=== PATIENT | female | born 1950 | race Caucasian/White ===

== ENCOUNTER → 2024-07-13 11:21 | Observation (INO) ==
[2024-07-11 18:48] LABS: Basophils #(Absolute) Auto 0.1 (0.0-0.1); Basophils%(Percent) Auto 0.8 (0.1-0.85); Eosinophils#(Absolute)Auto 0.1 (0.0-0.2); Eosinophils%(Percent) Auto 0.4 % (0.4-2.8); Granulocytes % - Auto 86.8 % (47.8-71.3); Granulocytes#(Absolute)- Auto 12.2 (2.3-6.0); Mean Corpuscular Volume 90.8 fl (81.0-93.7); Monocytes #(Absolute)- Auto 0.8 (1.1-3.1); Monocytes %(Percent)- Auto 5.5 % (3.6-9.8); Platelet Count 248 K/uL (152-353); White Blood Count 14.1 K/uL (4.3-9.3)
[2024-07-12] MEDS: DEXTROSE 50 % 25 GM/50 ML SYRINGE INJ ONE (07:39)
[2024-07-12 10:17] LABS: Potassium 3.9 mmol/L (3.6-5.2)
[2024-07-12 10:34] LABS: Basophils #(Absolute) Auto 0.1 (0.0-0.1); Basophils%(Percent) Auto 0.8 (0.1-0.85); Eosinophils#(Absolute)Auto 0.2 (0.0-0.2); Eosinophils%(Percent) Auto 1.6 % (0.4-2.8); Granulocytes % - Auto 81.6 % (47.8-71.3); Granulocytes#(Absolute)- Auto 8.3 (2.3-6.0); Hematocrit 37.6 % (35.9-46.7); Mean Corpuscular Volume 91.4 fl (81.0-93.7); Monocytes #(Absolute)- Auto 0.7 (1.1-3.1); Monocytes %(Percent)- Auto 7.1 % (3.6-9.8); Platelet Count 251 K/uL (152-353); White Blood Count 10.2 K/uL (4.3-9.3)
[2024-07-12] MEDS: NON-FORMULARY MEDICATION 1 EACH (Levocetirizine 5 mg tablet) PO SCH (10:36)
[2024-07-12] MEDS: METFORMIN HCL 500 MG TABLET PO SCH (11:23)
[2024-07-12] MEDS: predniSONE 5 MG TABLET PO ONE (11:23)
[2024-07-12] MEDS: CLOPIDOGREL BISULFATE 75 MG TABLET PO SCH (11:23)
[2024-07-12] MEDS: AMLODIPINE BESYLATE 5 MG TABLET PO SCH (11:23)
[2024-07-12] MEDS: SULFAMETHOXAZOLE/TRIMETHOPRIM 1 EACH TABLET PO SCH (11:23)
[2024-07-12] MEDS: FUROSEMIDE 20 MG TABLET PO SCH (11:23)
[2024-07-12] MEDS: CYANOCOBALAMIN 1000 MCG PO SCH (11:24)
[2024-07-12] MEDS: COLCHICINE 0.6 MG TABLET PO SCH (11:24)
--- NOTE | 2024-07-12 11:45 | History & Physical Report ---
H&P: HPI History of Present Illness Chief complaint: cellulitis left lower leg, failed op tx, gout, con Narrative: Ms. Newman was admitted on 07/11/24 directly from PCP due to cellulits and BLE edema. She states that it has been ongoing since last week when she was discharged here on doxycycline. She complains of gout flare too with R foot pain near great toe, and redness to anterior LLE. Negative for edema. WBC elevated on admit at 14, 10 this morning. Vitals normal limits. BUN and creatinine elevated this week at 37, and 2.1 yesterday and 1.8 this morning with IVF. Uric acid 8.3. Review of Systems 2 Status of ROS 10 or more systems reviewed and unremark able except as noted in history and below Integumentary/Breast Reports: redness (LLE) PFSH PFS Medical History (Updated 07/12/24 @ 11:56 by Haresh Dahl NP) Gout Chronic acquired lymphedema Metabolic syndrome Congestive heart failure with left ventricular diastolic dysfunction, NYHA class 3 CAD (coronary artery disease) Diabetes HTN (hypertension) COPD (chronic obstructive pulmonary disease) Social History Smoking status: never smoker Problems where you live: no known problems Highest level of school completed/degree received: decline to answer Feel stressed/tense/nervous/anxious/difficulty sleeping: not at all Meds Home Medications and Allergies Home Medications Medication Instructions Recorded Confirmed Type amlodipine 5 mg tablet 5 mg PO DAILY 07/06/2407/12 History cholecalciferol (vitamin D3) 125 125 mcg PO DAILY 06/1007/12/24 History mcg (5,000 unit) tablet clopidogrel 75 mg tablet 75 mg PO DAILY 07/06/2405/03 History cyanocobalamin (vitamin B-12) 1,000 mcg sublingual JUNIOR LY 07/06/24 07/12/24 History 1,000 mcg sublingual lozenge furosemide 20 mg tablet 20 mg PO DAILY 07/06/2405/03 History gabapentin 600 mg tablet 600 mg PO TID 07/06/2407/12 History glimepiride 4 mg tablet 4 mg PO BID 07/06/24 5 History hydrocodone 10 mg-acetaminophen 1 tab PO Q12H PRN pain 07/06/24 07/12/24 History 325 mg tablet insulin glargine 100 unit/mL (3 40 unit subcut QPM 07/12/24 History mL) subcutaneous pen (Lantus Solostar U-100 Insulin) levocetirizine 5 mg tablet 5 mg PO DAILY 07/06/24 06/05/03 History levothyroxine 75 mcg tablet 75 mcg PO DAILY 07/06/24 0 07/12/24 History metformin 500 mg tablet 500 mg PO BID 07/06/2407/12 History mupirocin 2 % topical ointment 1 applic topical TID 07/12/24 History omeprazole 20 mg capsule,delayed 20 mg PO DAILY 07/12/24 History release semaglutide 0.25 mg or 0.5 mg (2 0.5 mg subcut .every week 07/06/24 07/12/24 History mg/3 mL) subcutaneous pen injector (Ozempic) simvastatin 40 mg tablet 40 mg PO .QHS 07/06/2407/12 History doxycycline monohydrate 100 mg 100 mg PO BID celluliti s #14 tabs 07/07/24 Rx tablet Allergies Allergy/AdvReac Type Severity Reaction Status Date / Time No Known Drug Allergies Allergy Verified 07/05/24 18:36 Exam 2 Constitutional: abnormal general appearance (disheveled) and (chronically ill), no apparent distress, abnormal body habitus (obese), limitations noted (physical limitations) and alert Vital Signs - 24 hr 07/11/24 17:05 07/11/24 17:05 07/11/24 20:00 Temperature 98.2 F 98.7 F Pulse Rate [Left] 94 H 92 H 64 Respiratory Rate 18 18 19 Blood Pressure Blood Pressure [Le ft Arm] 157/82 145/71 Pulse Oximetry 96 96 94 L Oxygen Delivery Me thod Room Air Room Air Room Air 07/11/24 23:36 07/12/24 03:46 07/12/24 08:00 Temperature 98.1 F 97.6 F 97.5 F L Pulse Rate [Left] 86 75 72 Respiratory Rate 17 18 17 Blood Pressure Blood Pressure [Le ft Arm] 149/71 154/70 162/76 Pulse Oximetry 99 96 98 Oxygen Delivery Me thod Room Air Room Air Room Air 07/12/24 11:23 07/12/24 11:23 Temperature Pulse Rate [Left] Respiratory Rate Blood Pressure 162/76 162/76 Blood Pressure [Le ft Arm] Pulse Oximetry Oxygen Delivery Oh thod HENMT: normocephalic, head/scalp atraumatic, hearing grossly abnormal, external ears normal, nasal mucous membranes normal, external nose normal, oral mucous membranes abnormal, oropharynx normal and dentition abnormal Eyes: PERRL, EOMs intact bilaterally, conjunctivae normal, no scleral icterus, papilledema noted and periorbital findings normal Neck/C-Spine: abnormal to visual inspection, trachea midline, cervical spine nontender, abnormal cervical ROM noted, supple, no meningeal signs, thyroid normal and no carotid bruits Lymph: no lymphadenopathy noted and no lymphedema noted Chest: inspection of chest normal Respiratory: breath sounds equal bilaterally, normal respiratory effort, clear to auscultation bilaterally, no wheezes, no rales, no retractions, no use of accessory muscles and chest percussion normal Cardiovascular: normal heart rate noted, regular rhythm noted, no gallop, no rub, no murmur, no JVD, no clicks, peripheral pulses as noted: and no bruits noted Gastrointestinal: abdomen abnormal to inspection, abdomen soft to palpation, nontender to palpation, nontender to percussion, nondistended, abnormal bowel sounds noted, hepatosplenomegaly noted, no masses, no pulsatile mass, no ascites and no hernia Genitourinary: no CVA tenderness and bladder normal to palpation Back/Pelvis: spine abnormal to inspection, no thoracic spine tenderness, no lumbar spine tenderness, thoracic spine ROM abnormal, lumbar spine ROM abnormal and straight leg raise negative bilaterally Extremities: abnormal to inspection, normal to palpation, no tenderness, full ROM, no joint enlargement and no deformity BLE nonpitting and tight with anterior BLE redness to lower legs. Strong 2 plus bilateral pedal and radial pulses, warm to touch Neurology: cranial nerve findings as noted:, no movement abnormality noted, no focal motor deficit noted, sensory deficit noted, deep tendon reflexes 2+ bilaterally, gait abnormality noted, speech normal, coordination normal, no fasciculations noted and GCS normal Psychiatry: Mental Status Exam documented within this Exam's Psych section mental status grossly normal, oriented x3, thought process normal, cooperative, affect normal, psychomotor activity normal and memory normal Feel stressed/tense/nervous/anxious/difficulty sleeping: not at all Skin: skin color abnormal, rash noted, ecchymosis noted, no wounds, no lacerations, skin turgor abnormal, jaundice noted, no petechiae, no mottling, nails abnormality noted and alopecia noted legs improving as noted in hospital course Image: Body (4 view): 1. Erythema Assessment and Plan Assessment and Plan (1) Cellulitis of left leg: Assessment and Plan: Bactrim DS po BID Code(s): L03.116 - Cellulitis of left lower limb (2) Gout: Assessment and Plan: Prednisone 10mg po now and daily Colchicine 1.2mg po now Code(s): M10.9 - Gout, unspecified (3) Acute kidney injury superimposed on stage 4 chronic kidney disease: Assessment and Plan: NS@100ml/hr Code(s): N17.9 - Acute kidney failure, unspecified; N18.4 - Chronic kidney disease, stage 4 (severe) (4) Diabetes: Assessment and Plan: Accucheck AC HS w/ SSI Lantus 40units @ HS Qualifiers: Diabetes mellitus type: type 2 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 Diabetes mellitus complication status: with other specified complication Qualified Code(s): E11.69 - Type 2 diabetes mellitus with other specified complication; Z79.4 - penitentiary (current) use of insulin Code(s): E11.9 - Type 2 diabetes mellitus without complications Plan Admit VS q4hrs CBC BMP in AM Results Labs Labs: CBC 07/11/24 07/12/24 Range/Units 18:24 10:00 WBC 14.1 H 10.2 H (4.3-9.3) K/uL RBC 4.1 4.1 (4.00-5.50) M/uL Hgb 11.9 L 12.3 L (12.5-15.8) gm/dL Hct 37.0 37.6 (35.9-46.7) % Plt Count 248 251 (152-353) K/uL Gran % 86.8 H 81.6 H (47.8-71.3) % Lymph % (Auto) 6.5 L 8.9 L (20.0-43.0) % [place] % (Auto) 5.5 7.1 (3.6-9.8) % Eos % (Auto) 0.4 1.6 (0.4-2.8) % Baso % (Auto) 0.8 0.8 (0.1-0.85) Lymph # (Auto) 0.9 L 0.9 L (1.1-3.1) [place] # (Auto) 0.8 L 0.7 L (1.1-3.1) Eos # (Auto) 0.1 0.2 (0.0-0.2) Baso # (Auto) 0.1 0.1 (0.0-0.1) Absolute Gran (auto) 12.2 H 8.3 H (2.3-6.0) CMP 07/11/24 07/12/24 18:24 10:00 Sodium 137 138 Potassium 4.0 3.9 Chloride 104.0 105.0 Carbon Dioxide 22 24 BUN 34 H 37 H Creatinine 2.1 H 1.8 H Glucose 87 142 H Calcium 8.4 L 9.0 Liver Function 07/11/24 Range/Units 18:24 Total Bilirubin 0.50 (0.0-1.0) mg/dL AST 23 (15-37) U/L ALT 27 L (30-65) U/L Alkaline Phosphatase 54 (50-136) U/L Albumin 2.7 L (3.4-5.0) g/dL
[2024-07-12] MEDS: 0.9 % SODIUM CHLORIDE 1000 ML 1,000 ML IV SCH (12:26)
[2024-07-12] MEDS: GABAPENTIN 300 MG CAPSULE PO SCH (15:48)
[2024-07-12] MEDS: LEVOTHYROXINE SODIUM 75 MCG TABLET PO SCH (15:48)
[2024-07-12] MEDS: GLIMEPIRIDE 2 MG TABLET PO SCH (15:48)
[2024-07-12] MEDS: SIMVASTATIN 10 MG TABLET PO SCH (20:37)
[2024-07-12] MEDS: CETIRIZINE HCL 10 MG TABLET PO SCH (20:37)
[2024-07-12] MEDS: INSULIN GLARGINE-YFGN 100 UNIT/ML INSULN.PEN SUBQ SCH (20:38)
[2024-07-13 05:34] LABS: Basophils #(Absolute) Auto 0.1 (0.0-0.1); Basophils%(Percent) Auto 0.7 (0.1-0.85); Eosinophils#(Absolute)Auto 0.2 (0.0-0.2); Eosinophils%(Percent) Auto 1.9 % (0.4-2.8); Granulocytes % - Auto 79.1 % (47.8-71.3); Granulocytes#(Absolute)- Auto 9.7 (2.3-6.0); Hematocrit 37.1 % (35.9-46.7); Mean Corpuscular Volume 91.3 fl (81.0-93.7); Monocytes #(Absolute)- Auto 0.8 (1.1-3.1); Monocytes %(Percent)- Auto 6.4 % (3.6-9.8); Platelet Count 276 K/uL (152-353); White Blood Count 12.3 K/uL (4.3-9.3)
[2024-07-13 05:43] LABS: Potassium 4.9 mmol/L (3.6-5.2)
[2024-07-13 07:44] VITALS: BP 154/74; PULSE 65; RESP 19; TEMP 97.8
[2024-07-13] MEDS: CHOLECALCIFEROL 1,000 UNITS TABLET (25 MCG) PO SCH (08:06)
[2024-07-13] MEDS: PANTOPRAZOLE SODIUM 40 MG TABLET.DR PO SCH (08:06)
[2024-07-13] MEDS: predniSONE 5 MG TABLET PO SCH (08:07)
[2024-07-13] MEDS: CYANOCOBALAMIN (VITAMIN B-12) 1,000 MCG TABLET PO SCH (09:34)
[~2024-07-13 11:21] MED LIST: HYDROCODONE/APAP 10/325 MG 1 EACH TABLET PO PRN; INSULIN GLARGINE SUBQ SCH; MUPIROCIN 22 GM OINT...G. TOPICAL SCH; OMEPRAZOLE 20 MG PO SCH
--- NOTE | 2024-07-13 18:15 | Discharge Summary ---
DS: Providers Provider Date of admission: 07/11/24 16:25 Primary care physician: Otilia Barlow DO Admitting clinician: Haresh Dahl Attending physician on admission: Pedro Landry Attending physician on discharge: Pedro Landry Discharging clinician: Nathan Christie Anticipated date of discharge: 07/13/24 DS: Diagnosis Discharge Diagnosis (1) Cellulitis of left leg: (2) Gout: (3) Acute kidney injury superimposed on stage 4 chronic kidney disease: (4) Diabetes: Qualifiers: Diabetes mellitus type: type 2 Diabetes mellitus long-term insulin use: with exterminator termite use Diabetes mellitus complication status: with other specified complication Qualified Code(s): E11.69 - Type 2 diabetes mellitus with other specified complication; Z79.4 - moth exterminator (current) use of insulin Plan Rx. Bactrim DS BID #14 Rx. Tylenol #3 w6h prn #20 Rx. Bactroban ointment BID 30gm Rx. Colchicine 0.6mg q6h or q1h prn up to 3 for acute pain #30 Resume regular home meds FU PCP 07/19/24 as directed DS: Summary Hospital Course Hospital Course: 73 yo female direct admitted by Dr. Barlow as a bounceback following discharge last week for LLE cellulitis. She also presented with acute flare of gout to her Rt great toe. Area of concerned was to the LLE distal calf, an area appropx 10cm in diameter, red, angry, warm, tender to touch. Rt great toe also with erythema, calor and TTP. She was started on colchicine oral therapy and Bactrim DS BID. She is insulin-dependent DM2 with HTN, chronic pain, HLD, hypothyroidism on Eliquis BID. Patient this morning with marked improvement in the area of redness to the leg and the right great toe, verbalizes desire to go home. Discussion of discharge and home medications allowed for patient input in decision to discharge. Status at Discharge Cognitive/behavioral status at discharge: stable, baseline Functional status at discharge: independent ambulation Overall status at discharge: patient is back to baseline Time Spent with Patient Time attestation: Total time spent providing and/or coordinating discharge services: Time spent: less than 30 minutes Exam Constitutional: normal general appearance and no apparent distress Vital Signs - 24 hr 07/12/24 19:44 07/12/24 23:33 07/13/24 03:37 Temperature 98.7 F 98.6 F 97.7 F Pulse Rate [Left] 89 74 63 Respiratory Rate 21 19 18 Blood Pressure [Le ft Arm] 156/73 152/72 122/41 Pulse Oximetry 96 95 96 Oxygen Delivery Me thod Room Air Room Air Room Air 07/13/24 07:42 Temperature 97.8 F Pulse Rate [Left] 65 Respiratory Rate 19 Blood Pressure [Le ft Arm] 154/74 Pulse Oximetry 99 Oxygen Delivery Me thod Room Air HENMT: normocephalic, head/scalp atraumatic and oral mucous membranes normal Eyes: PERRL and EOMs intact bilaterally Neck/C-Spine: visual inspection normal, cervical full ROM noted and supple Chest: inspection of chest normal and palpation of chest normal Respiratory: breath sounds equal bilaterally, normal respiratory effort, no wheezes, no rales and no retractions Cardiovascular: normal heart rate noted, regular rhythm noted, no gallop, no rub, no murmur, no JVD and peripheral pulses 2+ throughout Gastrointestinal: abdomen normal to inspection and abdomen soft to palpation obese Genitourinary: no CVA tenderness Back/Pelvis: spine normal to inspection and no thoracic spine tenderness Extremities: normal to inspection greatly improved area of local cellulitis to LLE lateral aspect just above ankle. Right great toe also reduced erythema and pain on colchicine. 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, gait normal and GCS normal Skin: skin color normal, no wounds and no mottling DS: Data Data Completed and Pending Completed studies during hospitalization: see note Labs on day of discharge: Labs from last 24 hours 07/13/24 05:20 WBC 12.3 H RBC 4.1 Hgb 11.9 L Hct 37.1 MCV 91.3 MCH 29.4 MCHC 32.2 L RDW 14.2 Plt Count 276 MPV 7.8 Gran % 79.1 H Lymph % (Auto) 11.9 L [place] % (Auto) 6.4 Eos % (Auto) 1.9 Baso % (Auto) 0.7 Lymph # (Auto) 1.5 [place] # (Auto) 0.8 L Eos # (Auto) 0.2 Baso # (Auto) 0.1 Absolute Gran (auto) 9.7 H Sodium 143 Potassium 4.9 Chloride 110.0 H Carbon Dioxide 25 Anion Gap 8.0 BUN 36 H Creatinine 1.5 H Estimated GFR 36.3 Glucose 64 L Calcium 8.5 Preliminary micro results at discharge 07/11/24 18:08 Blood Culture - Preliminary Blood - Venous Draw (Peripheral) 07/11/24 17:45 Blood Culture - Preliminary Blood - Venous Draw (Peripheral) Discharge Plan Discharge Disposition: Home, Self-Care Condition: Improved Discharge Medications: New sulfamethoxazole-trimethoprim 800-160 mg Tablet 1 tab PO BID Qty: 20 0RF pantoprazole 40 mg Tablet,Delayed Release (Dr/Ec) 40 mg PO QDAC Qty: 30 0RF colchicine [Colcrys] 0.6 mg tablet 0.6 mg PO DAILY MDD 6 tablets Qty: 30 0RF Rx Instructions: may take (1) every hour until pain controlled up to (3) acetaminophen-codeine 300-15 mg tablet 1 tab PO Q6H PRN (Reason: pain) Qty: 20 0RF Continued amlodipine 5 mg tablet 5 mg PO DAILY Patient Comments: TAKE 1 TABLET BY MOUTH EVERY DAY cholecalciferol (vitamin D3) 125 mcg (5,000 unit) tablet 125 mcg PO DAILY Patient Comments: TAKE ONE TABLET BY MOUTH ONCE DAILY clopidogrel 75 mg tablet 75 mg PO DAILY Patient Comments: TAKE ONE TABLET BY MOUTH ONCE DAILY cyanocobalamin (vitamin B-12) 1,000 mcg lozenge 1,000 mcg sublingual DAILY Patient Comments: DISSOLVE 1 TABLET UNDER THE TONGUE ONCE DAILY furosemide 20 mg tablet 20 mg PO DAILY Patient Comments: TAKE ONE TABLET BY MOUTH ONCE DAILY gabapentin 600 mg tablet 600 mg PO TID Patient Comments: TAKE ONE CAPSULE BY MOUTH THREE TIMES DAILY insulin glargine [Lantus Solostar U-100 Insulin] 100 unit/mL (3 mL) insulin pen 40 unit SUBCUT QPM Patient Comments: INJECT 40 UNITS SUBCUTANEOUSLY ONCE DAILY IN THE EVENING levocetirizine 5 mg tablet 5 mg PO DAILY Patient Comments: TAKE 1 TABLET BY MOUTH EVERY DAY levothyroxine 75 mcg tablet 75 mcg PO DAILY metformin 500 mg tablet 500 mg PO BID omeprazole 20 mg capsule,delayed release(DR/EC) 20 mg PO DAILY Patient Comments: TAKE 1 CAPSULE BY MOUTH EVERY DAY mupirocin 2 % ointment 1 applic TOPICAL TID simvastatin 40 mg tablet 40 mg PO .QHS Patient Comments: TAKE 1 TABLET BY MOUTH AT BEDTIME Ozempic 0.25 mg or 0.5 mg (2 mg/3 mL) pen injector 0.5 mg SUBCUT .every week Discontinued glimepiride 4 mg tablet 4 mg PO BID Patient Comments: TAKE 1 TABLET BY MOUTH TWICE A DAY hydrocodone-acetaminophen 10-325 mg tablet 1 tab PO Q12H PRN (Reason: pain) Patient Comments: TAKE ONE TABLET BY MOUTH EVERY 12 HOURS NEEDED doxycycline monohydrate 100 mg tablet 100 mg PO BID Qty: 14 0RF Discharge Orders: Discharge Order (Routine); Ordered 07/13/24 Ordered By: Nathan Christie Activity: increase activity as tolerated Diet: diabetic diet Interventions: Discharge Assessment Last Done: 07/13/24 10:49 MED/SURG & ICU Observation Charge Sheet Last Done: 07/13/24 10:59 Patient Instructions: Cellulitis (ED), Gout (ED) Forms: Portal/Health Info Access Inst Follow-Ups: Otilia Barlow DO [Primary Care Provider, Medical] - 07/19/24 10:45 am Discharge Date/Time: 07/13/24 11:21
== END | disposition home or self-care (01) ==
LOC: MS
PROVIDERS: ADMIT Physician Assistant Medical; ATTEND Physician Assistant Medical
DX: I25.10 Atherosclerotic heart disease of native coronary artery without angina pectoris; N17.9 Acute kidney failure, unspecified; M10.9 Gout, unspecified; I13.0 Hypertensive heart and chronic kidney disease with heart failure and stage 1 through stage 4 chronic kidney disease, or unspecified chronic kidney disease; Z79.85 Long-term (current) use of injectable non-insulin antidiabetic drugs; Z79.890 Hormone replacement therapy; E11.22 Type 2 diabetes mellitus with diabetic chronic kidney disease; Z79.02 Long term (current) use of antithrombotics/antiplatelets; Z79.899 Other long term (current) drug therapy; I50.30 Unspecified diastolic (congestive) heart failure; E88.810 Metabolic syndrome; L03.116 Cellulitis of left lower limb; N18.4 Chronic kidney disease, stage 4 (severe); Z79.4 Long term (current) use of insulin; Z79.84 Long term (current) use of oral hypoglycemic drugs; J44.9 Chronic obstructive pulmonary disease, unspecified

== ENCOUNTER 2024-07-27 18:27 | Observation (INO) ==
[2024-07-27 18:40] LABS: Basophils #(Absolute) Auto 0.2 (0.0-0.1); Eosinophils#(Absolute)Auto 0.1 (0.0-0.2); Eosinophils%(Percent) Auto 2.1 % (0.4-2.8); Granulocytes#(Absolute)- Auto 2.7 (2.3-6.0); Hematocrit 41.3 % (35.9-46.7); Mean Corpuscular Volume 90.6 fl (81.0-93.7); Monocytes #(Absolute)- Auto 0.4 (1.1-3.1); Monocytes %(Percent)- Auto 7.7 % (3.6-9.8); Platelet Count 285 K/uL (152-353); White Blood Count 5.2 K/uL (4.3-9.3)
[2024-07-27] MEDS: 0.9 % SODIUM CHLORIDE 500 ML IV ONE (20:22)
[2024-07-27] MEDS: ENOXAPARIN SODIUM 120 MG/0.8 ML SYRINGE SUBQ ONE (20:23)
--- NOTE | 2024-07-27 20:52 | Emergency Department Note ---
HPI - Recheck/Abnormal Lab/Rx General Chief Complaint: Recheck/Abnormal Lab/Rx Stated Complaint: D-DIMER IS UP Time Seen by Provider: 07/27/24 18:41 Source: patient and family Mode of arrival: walk-in Limitations: no limitations History of Present Illness HPI narrative: 73 yo female pt presents caox4 states that she was sent over by her pcp for abnormal labs states that she wsa seen by pcp today for follow up after being discharged from the hospital for cellulitis. States that she feels fine at this time. MD complaint: Reports abnormal lab Initial visit (ago): day(s) (today) Initial visit for: Reports cellulitis Returns today for: Reports cellulitis follow-up Symptoms since prior visit: Reports no new symptoms and improved Context: Reports called for abnormal lab result Associated symptoms: Reports none Related Data Home Medications Medication Instructions Recorded Confirmed amlodipine 5 mg tablet 5 mg PO DAILY 07/06/2407/12 cholecalciferol (vitamin D3) 125 125 mcg PO DAILY 06/1007/12/24 mcg (5,000 unit) tablet clopidogrel 75 mg tablet 75 mg PO DAILY 07/06/2405/03 cyanocobalamin (vitamin B-12) 1,000 mcg sublingual JUNIOR LY 07/06/24 07/12/24 1,000 mcg sublingual lozenge furosemide 20 mg tablet 20 mg PO DAILY 07/06/2405/03 gabapentin 600 mg tablet 600 mg PO TID 07/06/2407/12 insulin glargine 100 unit/mL (3 40 unit subcut QPM 07/12/24 mL) subcutaneous pen (Lantus Solostar U-100 Insulin) levocetirizine 5 mg tablet 5 mg PO DAILY 07/06/2405/03 levothyroxine 75 mcg tablet 75 mcg PO DAILY 07/06/24 0 07/12/24 metformin 500 mg tablet 500 mg PO BID 07/06/2407/12 mupirocin 2 % topical ointment 1 applic topical TID 07/12/24 omeprazole 20 mg capsule,delayed 20 mg PO DAILY 07/12/24 release semaglutide 0.25 mg or 0.5 mg (2 0.5 mg subcut .every week 07/06/24 07/12/24 mg/3 mL) subcutaneous pen injector (Ozempic) simvastatin 40 mg tablet 40 mg PO .QHS 07/06/2407/12 Previous Rx's Medication Instructions Recorded acetaminophen 300 mg-codeine 15 mg 1 tab PO Q6H PRN pa in #20 tabs 07/13/24 tablet colchicine 0.6 mg tablet (Colcrys) 0.6 mg PO DAILY #30 tabs 07/13/24 pantoprazole 40 mg tablet,delayed 40 mg PO QDAC #30 ta bs 07/13/24 release sulfamethoxazole 800 1 tab PO BID #20 tabs mg-trimethoprim 160 mg tablet Allergies Allergy/AdvReac Type Severity Reaction Status Date / Time No Known Drug Allergies Allergy Verified 07/27/24 18:41 Review of Systems Status of ROS 10 or more systems reviewed and unremark able except as noted in history and below PFS PFS Medical History Solitary kidney, acquired Gout Chronic acquired lymphedema Metabolic syndrome Congestive heart failure with left ventricular diastolic dysfunction, NYHA class 3 CAD (coronary artery disease) Diabetes HTN (hypertension) COPD (chronic obstructive pulmonary disease) Surgical History H/O tubal ligation Coronary angioplasty status Social History Smoking status: never smoker Problems where you live: no known problems Highest level of school completed/degree received: decline to answer Feel stressed/tense/nervous/anxious/difficulty sleeping: not at all Exam Constitutional: normal general appearance, no apparent distress and abnormal body habitus (obese) Vital Signs - 24 hr 07/27/24 18:30 07/27/24 19:33 Temperature 98.1 F 98.1 F Pulse Rate 99 H 95 H Respiratory Rate 18 19 Blood Pressure 160/56 146/83 Pulse Oximetry 99 96 Oxygen Delivery Me thod Room Air Room Air HENMT: normocephalic Eyes: PERRL Neck/C-Spine: visual inspection normal and trachea midline Lymph: no lymphadenopathy noted and no lymphedema noted Chest: inspection of chest normal Respiratory: breath sounds equal bilaterally, normal respiratory effort and clear to auscultation bilaterally Cardiovascular: normal heart rate noted Gastrointestinal: abdomen normal to inspection Genitourinary: no CVA tenderness Back/Pelvis: spine normal to inspection Extremities: normal to inspection 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 Patient was sent over by her primary care for elevated D-dimer. CTA chest is negative for pulmonary embolism. Patient is morbidly obese with large lower extremities. There does not appear to be any difference in the measurements on the patient's legs. Positive pulse motor sensory. Patient denies any pain or discomfort to her legs. Denies any shortness of breath. Due to the elevated D-dimer I do believe it is reasonable to anticoagulate the patient and to have ultrasound of the lower extremities done in the morning when ultrasound is available. I did consult with Brian Haas PA-C who agrees with this treatment plan. I discussed this with the patient who also agrees Vital Signs Vital signs: Vital Signs Temperature 98.1 F 07/27/24 18:30 Pulse Rate 99 H 07/27/24 18:30 Respiratory Rate 18 07/27/24 18:30 Blood Pressure 160/56 07/27/24 18:30 Pulse Oximetry 99 07/27/24 18:30 Oxygen Delivery Method Room Air 07/27/24 18:30 Temperature 98.4 F 07/27/24 20:34 Pulse Rate 90 07/27/24 20:34 Respiratory Rate 19 07/27/24 20:34 Blood Pressure 156/88 07/27/24 20:34 Pulse Oximetry 96 07/27/24 20:34 Oxygen Delivery Method Room Air 07/27/24 20:34 MDM - Recheck/Abnormal Lab/Rx Differential Diagnosis Differential diagnosis: Likely other (abnormal labs, pe, dvt) Medical Records Attestation: I reviewed the patient's medical records. Lab Data Attestation: I reviewed the patient's lab results. Labs: Lab Results 07/27/24 Range/Units 18:31 WBC 5.2 (4.3-9.3) K/uL RBC 4.6 (4.00-5.50) M/uL Hgb 13.6 (12.5-15.8) gm/dL Hct 41.3 (35.9-46.7) % MCV 90.6 (81.0-93.7) fl MCH 29.8 (27.6-32.2) pg MCHC 32.9 L (33.1-35.3) g/dl RDW 14.0 (11.4-14.2) % Plt Count 285 (152-353) K/uL MPV 8.6 (6.9-10.8) fl Gran % 53.0 (47.8-71.3) % Lymph % (Auto) 34.2 (20.0-43.0) % [place] % (Auto) 7.7 (3.6-9.8) % Eos % (Auto) 2.1 (0.4-2.8) % Baso % (Auto) 3.0 H (0.1-0.85) Lymph # (Auto) 1.8 (1.1-3.1) [place] # (Auto) 0.4 L (1.1-3.1) Eos # (Auto) 0.1 (0.0-0.2) Baso # (Auto) 0.2 H (0.0-0.1) Absolute Gran (auto) 2.7 (2.3-6.0) Imaging Data Imaging ordered: CT scan - chest Attestation: I have reviewed the pertinent imaging results. Discharge Plan Discharge Patient Disposition: Admitted As Observation Condition: Stable Clinical Impression: Elevated d-dimer Time of Disposition: 20:24
[2024-07-28 08:18] VITALS: RESP 19
[2024-07-28] MEDS: ENOXAPARIN SODIUM 120 MG/0.8 ML SYRINGE SUBQ SCH (09:00)
--- NOTE | 2024-07-28 11:32 | Short Stay Summary ---
H&P: HPI History of Present Illness Chief complaint: elevated d dimer Narrative: Ms. Newman was admitted on 07/27/24 after being sent to the ER from PCP for abnormal labs. Patient PCP for a follow-up after being discharged from the hospital for cellulitis due to cellulits and BLE edema. She states that it has been ongoing since last week when she was discharged here on doxycycline. She complains of gout flare too with R foot pain near great toe, and redness to anterior LLE. Negative for edema. WBC elevated on admit at 14, 10 this morning. Vitals normal limits. BUN and creatinine elevated this week at 37, and 2.1 yesterday and 1.8 this morning with IVF. Uric acid 8.3. US was unavailable at this facility and she was sent to [facility] for further assessment and returned negative for DVT Review of Systems Status of ROS 10 or more systems reviewed and unremark able except as noted in history and below Integumentary/Breast Reports: redness (LLE) PFSH PFSH Medical History Solitary kidney, acquired Gout Chronic acquired lymphedema Metabolic syndrome Congestive heart failure with left ventricular diastolic dysfunction, NYHA class 3 CAD (coronary artery disease) Diabetes HTN (hypertension) COPD (chronic obstructive pulmonary disease) Surgical History H/O tubal ligation Coronary angioplasty status Social History Smoking status: never smoker Problems where you live: no known problems Highest level of school completed/degree received: high school Feel stressed/tense/nervous/anxious/difficulty sleeping: not at all Meds Home Medications and Allergies Home Medications Medication Instructions Recorded Confirmed Type amlodipine 5 mg tablet 5 mg PO DAILY 07/06/2407/28 History cholecalciferol (vitamin D3) 125 125 mcg PO DAILY 06/1007/28/24 History mcg (5,000 unit) tablet clopidogrel 75 mg tablet 75 mg PO DAILY 07/06/2407/10 History cyanocobalamin (vitamin B-12) 1,000 mcg sublingual JUNIOR LY 07/06/24 07/28/24 History 1,000 mcg sublingual lozenge furosemide 20 mg tablet 20 mg PO DAILY 07/06/2407/10 History gabapentin 600 mg tablet 600 mg PO TID 07/06/2407/28 History insulin glargine 100 unit/mL (3 40 unit subcut QPM 07/28/24 History mL) subcutaneous pen (Lantus Solostar U-100 Insulin) levocetirizine 5 mg tablet 5 mg PO DAILY 07/06/2407/10 History levothyroxine 75 mcg tablet 75 mcg PO DAILY 07/06/24 0 07/28/24 History metformin 500 mg tablet 500 mg PO BID 07/06/2407/28 History semaglutide 0.25 mg or 0.5 mg (2 0.5 mg subcut .every week 07/06/24 07/28/24 History mg/3 mL) subcutaneous pen injector (Ozempic) simvastatin 40 mg tablet 40 mg PO .QHS 07/06/2407/28 History acetaminophen 300 mg-codeine 15 mg 1 tab PO Q6H PRN pa in #20 tabs 07/13/24 07/28/24 Rx tablet colchicine 0.6 mg tablet (Colcrys) 0.6 mg PO DAILY #30 tabs 07/13/24 07/28/24 Rx pantoprazole 40 mg tablet,delayed 40 mg PO QDAC #30 ta bs 07/13/24 07/28/24 Rx release glimepiride 4 mg tablet 4 mg PO BIDWM 07/28/2407/28 History Allergies Allergy/AdvReac Type Severity Reaction Status Date / Time No Known Drug Allergies Allergy Verified 07/27/24 18:41 Exam Constitutional: normal general appearance, no apparent distress and abnormal body habitus (obese) Vital Signs - 24 hr 07/27/24 18:30 07/27/24 19:33 07/27/24 20:34 Temperature 98.1 F 98.1 F 98.4 F Pulse Rate 99 H 95 H 90 Pulse Rate [Left] Respiratory Rate 18 19 19 Blood Pressure 160/56 146/83 156/88 Blood Pressure [Le ft Arm] Pulse Oximetry 99 96 96 Oxygen Delivery Me thod Room Air Room Air Room Air 07/27/24 20:58 07/27/24 21:53 07/27/24 22:00 Temperature 98.3 F 98.4 F Pulse Rate 89 Pulse Rate [Left] Respiratory Rate 16 18 18 Blood Pressure 152/88 Blood Pressure [Le ft Arm] Pulse Oximetry 97 95 95 Oxygen Delivery Me thod Room Air Room Air 07/27/24 23:55 07/28/24 00:00 07/28/24 04:00 Temperature 98.0 F 98.0 F 98.4 F Pulse Rate Pulse Rate [Left] 97 H 97 H 79 Respiratory Rate 18 18 18 Blood Pressure Blood Pressure [Le ft Arm] 139/77 139/77 139/73 Pulse Oximetry 96 Oxygen Delivery Me thod Room Air Room Air Room Air 07/28/24 08:00 Temperature 97.3 F L Pulse Rate Pulse Rate [Left] 81 Respiratory Rate 19 Blood Pressure Blood Pressure [Le ft Arm] 164/74 Pulse Oximetry 96 Oxygen Delivery Me thod Room Air HENMT: normocephalic Eyes: PERRL Neck/C-Spine: visual inspection normal and trachea midline Lymph: no lymphadenopathy noted and no lymphedema noted Chest: inspection of chest normal Respiratory: breath sounds equal bilaterally, normal respiratory effort and clear to auscultation bilaterally Cardiovascular: normal heart rate noted Gastrointestinal: abdomen normal to inspection Genitourinary: no CVA tenderness Back/Pelvis: spine normal to inspection Extremities: normal to inspection 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 and no movement abnormality noted Psychiatry: mental status grossly normal and oriented x3 Skin: skin color normal Assessment and Plan Assessment and Plan (1) Chronic acquired lymphedema: Code(s): I89.0 - Lymphedema, not elsewhere classified (2) HTN (hypertension): Qualifiers: Hypertension type: primary hypertension Qualified Code(s): I10 - Essential (primary) hypertension Code(s): I10 - Essential (primary) hypertension Plan Admit VSq4 COntinue Home meds US BLE D/C home Results Labs Labs: CBC 07/27/24 Range/Units 18:31 WBC 5.2 (4.3-9.3) K/uL RBC 4.6 (4.00-5.50) M/uL Hgb 13.6 (12.5-15.8) gm/dL Hct 41.3 (35.9-46.7) % Plt Count 285 (152-353) K/uL Gran % 53.0 (47.8-71.3) % Lymph % (Auto) 34.2 (20.0-43.0) % Keith % (Auto) 7.7 (3.6-9.8) % Eos % (Auto) 2.1 (0.4-2.8) % Baso % (Auto) 3.0 H (0.1-0.85) Lymph # (Auto) 1.8 (1.1-3.1) Keith # (Auto) 0.4 L (1.1-3.1) Eos # (Auto) 0.1 (0.0-0.2) Baso # (Auto) 0.2 H (0.0-0.1) Absolute Gran (auto) 2.7 (2.3-6.0) Imaging Radiologist's impression: CTA negative US BLE negative DS: Providers Provider Date of admission: 07/27/24 20:25 Primary care physician: Otilia Barlow DO DS: Summary Status at Discharge Overall status at discharge: patient is back to baseline Discharge Plan Discharge Disposition: Home, Self-Care Condition: Stable Discharge Medications: Continued amlodipine 5 mg tablet 5 mg PO DAILY Patient Comments: TAKE 1 TABLET BY MOUTH EVERY DAY cholecalciferol (vitamin D3) 125 mcg (5,000 unit) tablet 125 mcg PO DAILY Patient Comments: TAKE ONE TABLET BY MOUTH ONCE DAILY clopidogrel 75 mg tablet 75 mg PO DAILY Patient Comments: TAKE ONE TABLET BY MOUTH ONCE DAILY cyanocobalamin (vitamin B-12) 1,000 mcg lozenge 1,000 mcg sublingual DAILY Patient Comments: DISSOLVE 1 TABLET UNDER THE TONGUE ONCE DAILY furosemide 20 mg tablet 20 mg PO DAILY Patient Comments: TAKE ONE TABLET BY MOUTH ONCE DAILY gabapentin 600 mg tablet 600 mg PO TID Patient Comments: TAKE ONE CAPSULE BY MOUTH THREE TIMES DAILY insulin glargine [Lantus Solostar U-100 Insulin] 100 unit/mL (3 mL) insulin pen 40 unit SUBCUT QPM Patient Comments: INJECT 40 UNITS SUBCUTANEOUSLY ONCE DAILY IN THE EVENING levocetirizine 5 mg tablet 5 mg PO DAILY Patient Comments: TAKE 1 TABLET BY MOUTH EVERY DAY levothyroxine 75 mcg tablet 75 mcg PO DAILY metformin 500 mg tablet 500 mg PO BID simvastatin 40 mg tablet 40 mg PO .QHS Patient Comments: TAKE 1 TABLET BY MOUTH AT BEDTIME Ozempic 0.25 mg or 0.5 mg (2 mg/3 mL) pen injector 0.5 mg SUBCUT .every week pantoprazole 40 mg Tablet,Delayed Release (Dr/Ec) 40 mg PO QDAC Qty: 30 0RF colchicine [Colcrys] 0.6 mg tablet 0.6 mg PO DAILY MDD 6 tablets Qty: 30 0RF Rx Instructions: may take (1) every hour until pain controlled up to (3) acetaminophen-codeine 300-15 mg tablet 1 tab PO Q6H PRN (Reason: pain) Qty: 20 0RF glimepiride 4 mg tablet 4 mg PO BIDWM Patient Comments: TAKE 1 TABLET BY MOUTH TWICE A DAY Discharge Orders: Discharge Order (Routine); Ordered 07/28/24 Ordered By: Haresh Dahl Activity: resume usual activities as tolerated Diet: advance to your usual diet Interventions: MED/SURG & ICU Observation Charge Sheet Last Done: 07/28/24 16:07 Forms: Portal/Health Info Access Inst Follow-Ups: Otilia Barlow DO [Primary Care Provider, Medical] - 08/03/24 2:15 pm
[2024-07-28 16:07] VITALS: BP 156/76; PULSE 82; TEMP 97.4
== END 2024-07-28 17:10 | disposition home or self-care (01) ==
LOC: MS 18:27 → ED 18:27 → MS 21:01
PROVIDERS: ADMIT Nurse Practitioner Family; ATTEND Nurse Practitioner
DX: Z79.84 Long term (current) use of oral hypoglycemic drugs; Z79.02 Long term (current) use of antithrombotics/antiplatelets; Z79.85 Long-term (current) use of injectable non-insulin antidiabetic drugs; Z79.890 Hormone replacement therapy; Z79.899 Other long term (current) drug therapy; I50.30 Unspecified diastolic (congestive) heart failure; I25.10 Atherosclerotic heart disease of native coronary artery without angina pectoris; J44.9 Chronic obstructive pulmonary disease, unspecified; Z79.4 Long term (current) use of insulin; E88.810 Metabolic syndrome; E11.9 Type 2 diabetes mellitus without complications; R79.1 Abnormal coagulation profile; I11.0 Hypertensive heart disease with heart failure; Z98.61 Coronary angioplasty status